=== PATIENT | male | born 1965 | race Caucasian/White ===

== ENCOUNTER 2018-02-18 08:00 | Inpatient (IN) | payer OTHER ==
[2018-03-11] MEDS ORDERED: BUPIVACAINE HCL/PF 0.25% (2.5MG/ML) 10 ML VIAL ONE (07:06)
[2018-03-11] MEDS ORDERED: THROMBIN (BOVINE) 5,000 UNIT VIAL TP ONE ×2 (07:06→09:02)
[2018-03-11] MEDS ORDERED: HEPARIN NA (PORCINE) 5,000 UNITS/ML 1ML VIAL ONE (07:06)
[2018-03-11] MEDS ORDERED: BENZOIN TINCTURE SWABSTICK TP ONE (07:19)
[2018-03-11] MEDS ORDERED: CEFAZOLIN 2 GM in DEXTROSE 5%-WATER - 100 ML IVPB ONE (07:28)
[2018-03-11] MEDS ORDERED: diphenhydrAMINE HCL 25 MG CAPSULE (FP) PO PRN (07:29)
[2018-03-11] MEDS ORDERED: VANCOMYCIN 1,000 MG in DEXTROSE 5%-WATER - 250 ML IVPB ONE (07:29)
[2018-03-11] MEDS ORDERED: ONDANSETRON 4 MG/2 ML VIAL IVPUSH PRN ×2 (07:29→11:24)
[2018-03-11] MEDS ORDERED: LACTATED RINGERS SOLUTION 1,000 ML/1,000 ML INFUS.BAG IV SCH (07:30)
[2018-03-11] MEDS ORDERED: ROCURONIUM BROMIDE 50 MG/5 ML VIAL ONE (08:01)
[2018-03-11] MEDS ORDERED: MIDAZOLAM HCL 2 MG/2 ML SINGLE DOSE VIAL ONE (08:01)
[2018-03-11] MEDS ORDERED: PROPOFOL 20 ML ONE ×11 (08:01→11:05)
[2018-03-11] MEDS ORDERED: LIDOCAINE HCL/PF 2% SDV 5ML VIAL ONE (08:03)
[2018-03-11] MEDS ORDERED: morphine SULFATE/Preservative Free 0.5 MG/ML (1cc Syringe) ONE (08:06)
[2018-03-11] MEDS ORDERED: SUCCINYLCHOLINE CHLORIDE 200 MG/10 ML VIAL ONE (08:13)
[2018-03-11] MEDS ORDERED: fentaNYL CITRATE 250 MCG/5 ML VIAL ONE (08:54)
[2018-03-11] MEDS ORDERED: VANCOMYCIN 1,000 MG VIAL (RESTRICTED TO ID ONLY) ONE (08:57)
[2018-03-11] MEDS ORDERED: ceFAZolin SODIUM 1 GM VIAL ONE ×2 (08:57→11:48)
[2018-03-11] MEDS ORDERED: ceFAZolin 2 GRAM PREMIX BAG IVPB ONE (08:59)
[2018-03-11] MEDS ORDERED: TRANEXAMIC ACID 1000 MG/10 ML VIAL ONE (09:00)
[2018-03-11] MEDS ORDERED: VANCOMYCIN 1 GRAM (PRE-DOCKED) 1,000 MG/250 ML BAG IVPB ONE (09:00)
[2018-03-11] MEDS ORDERED: BUPIVACAINE LIPOSOME/PF (EXPAREL) 266 MG/20 ML VIAL NR ONE ×2 (09:02→11:54)
[2018-03-11] MEDS ORDERED: DEXAMETHASONE SOD PHOSPHATE 4 MG/1 ML VIAL ONE (09:17)
[2018-03-11] MEDS ORDERED: NEOSTIGMINE METHYLSULFATE 0.5 MG/1 ML - 10 ML MDV ONE (09:48)
[2018-03-11] MEDS ORDERED: GLYCOPYRROLATE 0.2 MG/1 ML VIAL ONE (09:48)
[2018-03-11] MEDS ORDERED: PROMETHAZINE HCL 25 MG/1 ML VIAL IVPB PRN (11:24)
[2018-03-11] MEDS ORDERED: DEXAMETHASONE SOD PHOSPHATE 4 MG/1 ML VIAL IVPUSH PRN (11:24)
[2018-03-11] MEDS ORDERED: ceFAZolin SODIUM 1 GM VIAL IVPB ONE (11:55)
[2018-03-11] MEDS ORDERED: BUPIVACAINE HCL/PF 0.25% (2.5MG/ML) 10 ML VIAL IJ ONE (11:55)
[2018-03-11] MEDS ORDERED: METOPROLOL TARTRATE 5 MG/5 ML VIAL ONE (12:01)
[2018-03-11] MEDS ORDERED: HYDROmorphone *PCA* 10MG/50ML DISP.SYRIN PCA ONE (12:59)
[2018-03-11] MEDS: HYDROmorphone *PCA* 10MG/50ML DISP.SYRIN PCA SCH (13:05)
[2018-03-11] MEDS: LACTATED RINGERS SOLUTION 1,000 ML IV SCH (13:34)
--- NOTE | 2018-03-11 13:40 | CONSULT ---
Consultation: REQUESTING PROVIDER: CONSULT REQUEST: We have been asked to medically evaluate this patient for s/p L3-S1 post-lumbar interbody fusion for ICU admission. HISTORY OF PRESENT ILLNESS: 52M w/ pmhx of acid reflux admitted for elective lumbar surgery s/p L3-S1 post- lumbar interbody fusion, POD #0. Pt states he started having back problems since 2001 and has had one other back surgery prior to this surgery. He states he has been taking Percocet at home for his lower lumbar back pain for the past 5 years. Since then he has had to use a cane to ambulate due to severe pain in his RLE. PMHx: Spinal stenosis PSHx: Lumbar back sx FHx: Maternal aunt, grandfather- stomach cancer; Mother, maternal grandmother- heart disease Social: Former smoker, quit 2 months ago, used to smoke 10 cig/day; social drinker, admits to marijuana use REVIEW OF SYSTEMS: CONSTITUTIONAL: Denies f/c, n/v, loss of appetite, visual changes CARDIOVASCULAR: Denies chest pain, palpitations, irregular heart rate, lightheadedness, peripheral edema RESPIRATORY: Denies cough, sob, dyspnea on exertion, orthopnea GASTROINTESTINAL: Denies abd pain, abd distension, n/v, diarrhea, constipation GENITOURINARY: Denies dysuria, frequency, urgency, hesitancy, hematuria MUSCULOSKELETAL: Admits to back pain and weakness in LE, R > L SKIN: Denies rash, itching, pallor NEUROLOGIC: Denies headaches, dizziness, bladder or bowel incontinence PHYSICAL EXAMINATION Vital Signs - 24 hr 03/11/18 03/11/18 03/11/18 06:52 06:53 12:50 Temperature 99.1 F 98.4 F Pulse Rate 78 72 Respiratory 16 18 Rate Blood Pressure 127/73 135/97 O2 Sat by Pulse 98 100 Oximetry (%) 03/11/18 03/11/18 03/11/18 13:05 13:10 13:20 Temperature Pulse Rate 60 60 70 Respiratory 12 12 14 Rate Blood Pressure 133/90 133/90 125/87 O2 Sat by Pulse 100 100 Oximetry (%) 03/11/18 13:35 Temperature Pulse Rate 70 Respiratory 14 Rate Blood Pressure 135/91 O2 Sat by Pulse 100 Oximetry (%) GENERAL: Awake, alert, and fully oriented, in no acute distress. HEAD: Normal with no signs of trauma. EYES: Pupils equal, round and reactive to light, extraocular movements intact, sclera anicteric, conjunctiva clear. No lid lag. EARS, NOSE, THROAT: Ears normal, nares patent, oropharynx clear without exudates. Moist mucous membranes. NECK: Normal range of motion, supple without lymphadenopathy, JVD, or masses. LUNGS: Breath sounds equal, clear to auscultation bilaterally. No wheezes, and no crackles. No accessory muscle use. HEART: Regular rate and rhythm, normal S1 and S2 without murmur, rub or gallop. ABDOMEN: Soft, nontender, not distended, normoactive bowel sounds, no guarding, no rebound, no masses. No hepatomegaly or splenomegaly. MUSCULOSKELETAL: Normal range of motion at all joints. No bony deformities or tenderness. No CVA tenderness. UPPER EXTREMITIES: 2+ pulses, warm, well-perfused. No cyanosis. No clubbing. Cap refill <2 seconds. No peripheral edema. LOWER EXTREMITIES: 2+ pulses, warm, well-perfused. No calf tenderness. No peripheral edema. NEUROLOGICAL: Cranial nerves II-XII intact. Normal speech. Normal gait. PSYCHIATRIC: Cooperative. Good eye contact. Appropriate mood and affect. SKIN: Warm, dry, normal turgor, no rashes or lesions noted. Laboratory Results - last 24 hr 03/11/18 03/11/18 06:23 06:52 Blood Type A NEGATIVE A NEGATIVE Antibody Screen Negative Active Medications Generic Name Dose Route Start Last Admin Trade Name Freq PRN Reason Stop Dose Admin Baclofen 10 mg 03/12/18 10:00 Lioresal - PO BID [facility] Dexamethasone Sodium Phosphate 4 mg 03/11/18 11:24 Decadron Injection - IVPUSH ONCE PRN NAUSEA AND/OR VOMITING Diphenhydramine HCl 25 mg 03/11/18 07:29 Benadryl - PO Q6H PRN FOR ITCHING Diphenhydramine HCl 12.5 mg 03/11/18 11:24 Benadryl Injection - IVPUSH ONCE PRN FOR ITCHING Docusate Sodium 100 mg 03/11/18 14:00 Colace - PO TID RAMA Fentanyl 50 mcg 03/11/18 11:24 Sublimaze Injection - IVPUSH [id number] PRN PAIN-PACU ORDER X 4 DOSES ONLY Folic Acid 1 mg 03/11/18 10:00 Folic Acid - PO DAILY RAMA Hydromorphone HCl 10 mg 03/11/18 11:30 03/11/18 13:05 Dilaudid [employer] - VULCAN CREWMEMBER 03/18/18 11:26 10 mg VULCAN CREWMEMBER RAMA Administration Protocol Lactated Ringer's 1,000 mls @ 125 mls/hr 03/11/18 11:30 03/11/18 13:34 Lactated Ringers Solution IV 125 mls/hr ASDIR RAMA Administration Ondansetron HCl 4 mg 03/11/18 07:29 Zofran Injection IVPUSH Q6H PRN NAUSEA Ondansetron HCl 4 mg 03/11/18 11:24 Zofran Injection IVPUSH Q4H PRN NAUSEA AND/OR VOMITING Promethazine HCl 12.5 mg 03/11/18 11:24 Phenergan Injection - IVPB Q6H PRN NAUSEA AND/OR VOMITING Varenicline 1 mg 03/12/18 10:00 Chantix - PO BID RAMA ASSESSMENT/PLAN: 52M w/ pmhx of 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 -no NSAIDs -Fentanyl, Dilaudid for pain -Baclofen -PT/OT, OOB. Rehab -WBAT B/L LE ID -post-op Ancef x2 doses Pulm -IS FEN -no IVF needed -recheck lytes in AM -CLD Prophylaxis DVT- SCDs, TEDs dispo -full code Visit type - Emergency Visit Emergency Visit: Yes ED Registration Date: 03/11/18 Care time: The patient presented to the Emergency Department on the above date and was hospitalized for further evaluation of their emergent condition. - New Patient This patient is new to me today: Yes Date on this admission: 03/11/18 - Critical Care Critical Care patient: Yes Total Critical Care Time (in minutes): 36 Critical Care Statement: The care of this patient involved high complexity decision making to prevent further life threatening deterioration of the patient 's condition and/or to evaluate & treat vital organ system(s) failure or risk of failure.
--- NOTE | 2018-03-11 13:58 | PN ---
Progress Note (short form) - Note Progress Note: 52M POD #0 s/p: 1. Removal of hardware (lumbar spine) 2. Inspection of fusion mass (lumbar spine) 3. Revision laminectomy L4 4. L3 laminectomies 5. L3, L4 osteotomies (facetectomies) 6. L3-L4 Otero Becerra Osteotomies 7. L3-S1 posterior instrumentation 5. L3-S1 posterolateral arthrodesis 7. L3-L4 posterior lumbar interbody fusion 8. L3-L4 mechanical device 9. Bone allograft 10. Bone autograft 11. Bone marrow aspiration 12. Complex wound closure -Pain control: NO NSAID's. -DVT PPx: -Mechanical only: SUNITA's, SCD's. -Chemical: None. -Incentive spirometry. -PT/OT/Rehab, OOB. -WBAT B/L LE. -NPO until flatus. -Monitor drain output. -Amador care; d/c when ambulating. -Post-op Ancef x 2 doses. -No bending, lifting, or twisting for 9-12 months. -Care per ICU & medical hospitalist teams. -Will follow. Jarad Souza MD (Orthopaedic Surgery).
--- NOTE | 2018-03-11 14:01 | OP ---
Operative Note - Note: Operative Date: 03/11/18 Pre-Operative Diagnosis: 1. 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 2. Severe multi-level lumbar spinal stenosis with neurogenic claudication. 3. Lumbosacral instability. 4. Sagittal vertical malalignment/imbalance (kyphosis). 5. Neurological decline/ weakness. Operation: 1. Removal of hardware (lumbar spine). 2. Inspection of fusion mass (lumbar spine). 3. Revision laminectomy L4. 4. L3 laminectomies. 5. L3, L4 osteotomies (facetectomies). 6. L3-L4 Otero Becerra Osteotomies. 7. L3-S1 posterior instrumentation. 8. L3-S1 posterolateral arthrodesis. 9. L3-L4 posterior lumbar interbody fusion. 10. L3-L4 mechanical device. 11. Bone allograft. 12. Bone autograft. 13. Bone marrow aspiration. 14. Complex wound closure Post-Operative Diagnosis: Same as Pre-op Surgeon: Jarad Souza Commander [employer]: Earnest Hernandez Anesthesiologist/ACCOUNTING ANALYST: Enzo Gonzalez Anesthesia: General Specimens Removed: L3-L4 disc Estimated Blood Loss (mls): 325 Drains & Tubes with Location: 1 x superficial HemoVac Fluid Volume Replaced (mls): 1,700 (Crystalloid) Operative Report Dictated: Yes
--- NOTE | 2018-03-11 14:16 | SURG ---
Surgery Brick Veneer Maker Note Brick Veneer Maker: Earnest Hernandez PA-C Date of Service: 03/11/18 Diagnosis: 1. 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 2. Severe multi-level lumbar spinal stenosis with neurogenic claudication. 3. Lumbosacral instability. 4. Sagittal vertical malalignment/imbalance (kyphosis). 5. Neurological decline/weakness. Procedure: 1. Removal of hardware (lumbar spine). 2. Inspection of fusion mass (lumbar spine). 3. Revision laminectomy L4. 4. L3 laminectomies. 5. L3, L4 osteotomies (facetectomies). 6. L3-L4 Otero Becerra Osteotomies. 7. L3-S1 posterior instrumentation. 8. L3-S1 posterolateral arthrodesis. 9. L3-L4 posterior lumbar interbody fusion. 10. L3-L4 mechanical device. 11. Bone allograft. 12. Bone autograft. 13. Bone marrow aspiration. 14. Complex wound closure I was present for the entirety of the operative procedure. For further detail, please refer to operative report. Visit type - Case Type Case Type: Scheduled - New patient This patient is new to me today: Yes Date on this admission: 03/11/18
[2018-03-11] MEDS: FOLIC ACID 1 MG TABLET (FP) PO SCH (15:52)
[2018-03-11] MEDS: DOCUSATE SODIUM 100 MG CAPSULE (FP) PO SCH ×2 (15:53→21:15)
[2018-03-11] MEDS ORDERED: CEFAZOLIN 2 GM/D5W 2 GM/50 ML ML IVPB SCH (16:00)
--- NOTE | 2018-03-11 21:33 | OP ---
DATE OF OPERATION: 03/11/2018 SURGEON: Jarad Souza MD NEURO UROLOGIST: YARON Rangel PREOPERATIVE DIAGNOSIS: 1. 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 2. Severe multi-level lumbar spinal stenosis with neurogenic claudication. 3. Lumbar spine segmental instability. 4. Sagittal vertical malalignment/imbalance (kyphosis). 5. Neurological decline/weakness. POSTOPERATIVE DIAGNOSIS: 1. 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 2. Severe multi-level lumbar spinal stenosis with neurogenic claudication. 3. Lumbar spine segmental instability. 4. Sagittal vertical malalignment/imbalance (kyphosis). 5. Neurological decline/weakness. OPERATION PERFORMED: 1. Removal of hardware (lumbar spine). 2. Inspection of fusion mass (lumbar spine). 3. Revision laminectomy L4. 4. L3 laminectomies. 5. L3, L4 osteotomies (facetectomies). 6. L3-L4 Otero Becerra Osteotomies. 7. L3-S1 posterior instrumentation. 8. L3-S1 posterolateral arthrodesis. 9. L3-L4 posterior lumbar interbody fusion. 10. L3-L4 mechanical device. 11. Bone allograft. 12. Bone autograft. 13. Bone marrow aspiration. 14. Complex wound closure. 15. Biplanar fluoroscopy. 16. Intra-operative neural monitoring. ANESTHESIA: General. ANTIBIOTICS GIVEN: Kefzol 2 g, vancomycin 1 g preoperative, Kefzol 1 g given at the end of the procedure. OPERATION DETAILS: Patient correctly identified, brought to the operating room. Lumbar spine was prepped, routine draped with window draping. We used Betadine scrub solution, wiped off with alcohol, DuraPrep applied. Midline incision utilized. Dissection was taken through to the spinous process of L1, down to the tip of the spinous process of S1. Subperiosteal dissection started off in the proximal area where the subperiosteal levels were stripped off the bony margins and then dissecting out laterally. The hardware was not readily noted. Using the Myandb removal equipment, the L4, L5, S1 screws were removed with no difficulty. Once the screws had been removed, placing instrumentation onto the spine to clamp the spine appropriately, the fusion mass was inspected carefully and found to be completely stable and solid at L4, L5, S1. This fitted with the CT scan which showed bony growth accordingly. At that point, once all screws had been removed, the lamina of L3 was identified. We used a curette to define the inferior margin of the lamina. A [place] instrument was placed deep to the sublaminar space to separate the tissues off the bone bed, and the entire lamina was resected centrally. Once this had been performed, using osteotomes, the pars interarticularis and the inferior facet were incised. This was imploded into the vertebral canal medially to thus gain easy access to the superior facet at this level. This was readily resected, cutting out all the superior facet at the L3-4 joint which caused marked stenosis noted. The entire theca was freed after complete removal of the bone of L4 as well as the L3 level. Superior undercutting facetectomy performed. No injury to the dura. The dura was adherent, stuck down but freed using a [place] as well as a [place] 4. The dura was gently teased off the disk at L3-4. Epidural veins were dealt with with bipolar Bovie. An annulotomy was performed at L3-4. The bree were inserted. Disk material was removed completely. The serrated curettes helped clear all the soft tissue off the endplate bone. Once the entire disk had been emptied with the use of sequential shaving up to a size 10, the interbody space was packed with bone graft. The bone graft then enabled the seating of the cage L3-4, which resulted in, as per x-ray, a beautiful opening of the disk space and the foramen. Once this had been performed, no complications with the insertion and completing, thus the posterior lumbar interbody fusion including bone grafting and cage insertion. The pedicles of L3, L4, L5, S1 were entered using anatomic guidelines. Lateral fluoroscopic x-rays helped direct the screws appropriately, and new screws were placed at L3, L4, L5, S1. These were 6.5 x 40 mm screws. Each screw tested with neuromonitoring and found to be completely stable and safe. Prior to the insertion of each screw, the pedicles were palpated with a ball-tip feeler and found to be well seated. The rods were applied to the screw heads, fixed at the appropriate caps , tightened appropriately with a torque device. No crosslinks utilized. The wound was thoroughly lavaged. A bone graft, which was a mixture of autologous bone and expanded with allograft bone, and this then mixed with bone marrow aspirate concentrate, packed into the intertransverse plane from L3 to S1. Following this, the muscle was carefully trimmed, to debride it of any fragmented muscle, and the actual wound was closed as follows: Muscle 1 Vicryl, fascia 1 Vicryl, subcutaneous 1 and 2-0 Vicryl, skin kelly. Drainage: 1/8 inch x1. Operation went extremely well. No complications. In fact, the intraoperative neuromonitoring resulted in an improvement of neural numbers once the decompression had been completed. MD THELMA Fritz/[id number] MTDD
[2018-03-11] MEDS ORDERED: MAGNESIUM HYDROX 2400MG/30ML ORAL SUSPENSION 30 ML CUP PO PRN (23:49)
[2018-03-12] MEDS ORDERED: CEFAZOLIN 2 GM/D5W 2 GM/50 ML ML IVPB SCH
[2018-03-12] MEDS ORDERED: LORazepam 2 MG/ML SDV VIAL IVPUSH ONE (00:29)
[2018-03-12] MEDS ORDERED: LORazepam 2 MG/ML SDV VIAL ONE (00:30)
[2018-03-12] MEDS ORDERED: chlorproMAZINE HCL 25 MG TABLET PO PRN (01:16)
[2018-03-12] MEDS: DOCUSATE SODIUM 100 MG CAPSULE (FP) PO SCH ×3 (05:39→21:59)
[2018-03-12 06:17] LABS: HEMATOCRIT 33.3 % (35.4-49); HEMOGLOBIN 11.2 GM/dL (11.7-16.9); MCHC 33.5 g/dl (32.0-35.9); MEAN CELL VOLUME 98.5 fl (80-96); PLATELET COUNT 218 K/MM3 (134-434); RBC 3.38 M/mm3 (4.00-5.60); RDW 13.4 % (11.9-15.9); WHITE BLOOD COUNT 15.3 K/mm3 (4.0-10.0)
[2018-03-12 07:24] LABS: ANION GAP 10 MMOL/L (8-16); BLOOD UREA NITROGEN 20 mg/dL (7-18); CALCIUM 8.4 mg/dL (8.5-10.1); CHLORIDE 100 mmol/L (98-107); CO2 26 mmol/L (21-32); CREATININE 0.8 mg/dL (0.55-1.3); GLUCOSE,RANDOM 93 mg/dL (74-106); POTASSIUM 3.8 mmol/L (3.5-5.1); SODIUM 136 mmol/L (136-145)
--- NOTE | 2018-03-12 07:32 | PN ---
Physical Exam: SUBJECTIVE: Patient seen and examined. No acute events overnight. Denies shah/d, n /v, f/c, chest pain, sob, numbness/tingling, bowel/urinary incontinence. Pt eager to get out of bed. Tolerating CLD, but has not passed flatus or had a bowel movement yet. OBJECTIVE: Vital Signs Period Temp Pulse Resp BP Sys/Osman Pulse Ox Last 24 Hr 18 F-98.4 F 60-80 11-20 110-139/61-97 98-100 GENERAL: NAD. AAOx3. Resting comfortably. HEAD: Normal with no signs of trauma. EYES: PERRL, extraocular movements intact, sclera anicteric, conjunctiva clear. No ptosis. ENT: Ears normal, nares patent, oropharynx clear without exudates, moist mucous membranes. NECK: Trachea midline, full range of motion, supple. LUNGS: Breath sounds equal, clear to auscultation bilaterally, no wheezes, no crackles, no accessory muscle use. HEART: Regular rate and rhythm, S1, S2 without murmur, rub or gallop. ABDOMEN: Soft, nontender, nondistended, normoactive bowel sounds, no guarding, no rebound, no hepatosplenomegaly, no masses. EXTREMITIES: 2+ pulses, warm, well-perfused, no edema. NEUROLOGICAL: Cranial nerves II through XII grossly intact. Normal speech, gait not observed. PSYCH: Normal mood, normal affect. SKIN: Warm, dry, normal turgor, no rashes or lesions noted Laboratory Results - last 24 hr 03/11/18 03/11/18 03/12/18 06:23 06:52 05:30 WBC 15.3 H RBC 3.38 L Hgb 11.2 L Hct 33.3 L MCV 98.5 H MCH 33.0 MCHC 33.5 RDW 13.4 Plt Count 218 MPV 9.0 Sodium Potassium Chloride Carbon Dioxide Anion Gap BUN Creatinine Creat Clearance w eGFR Random Glucose Calcium Blood Type A NEGATIVE A NEGATIVE Antibody Screen Negative 03/12/18 05:30 WBC RBC Hgb Hct MCV MCH MCHC RDW Plt Count MPV Sodium 136 Potassium 3.8 Chloride 100 Carbon Dioxide 26 Anion Gap 10 BUN 20 H Creatinine 0.8 Creat Clearance w eGFR > 60 Random Glucose 93 Calcium 8.4 L Blood Type Antibody Screen Active Medications Generic Name Dose Route Start Last Admin Trade Name Freq PRN Reason Stop Dose Admin Baclofen 10 mg 03/12/18 10:00 Lioresal - PO BID [facility] Dexamethasone Sodium Phosphate 4 mg 03/11/18 11:24 Decadron Injection - IVPUSH ONCE PRN NAUSEA AND/OR VOMITING Diphenhydramine HCl 25 mg 03/11/18 07:29 Benadryl - PO Q6H PRN FOR ITCHING Diphenhydramine HCl 12.5 mg 03/11/18 11:24 Benadryl Injection - IVPUSH ONCE PRN FOR ITCHING Docusate Sodium 100 mg 03/11/18 14:00 03/12/18 05:39 Colace - PO 100 mg TID RAMA Administration Folic Acid 1 mg 03/11/18 10:00 03/11/18 15:52 Folic Acid - PO Not Given DAILY [facility] Hydromorphone HCl 10 mg 03/11/18 11:30 03/11/18 13:05 Dilaudid Tip Stretcher - APPLIED COMPUTER SCIENCE PROFESSOR 03/18/18 11:26 10 mg APPLIED COMPUTER SCIENCE PROFESSOR RAMA Administration Protocol Lactated Ringer's 1,000 mls @ 125 mls/hr 03/11/18 11:30 03/11/18 13:34 Lactated Ringers Solution IV 125 mls/hr ASDIR RAMA Administration Magnesium Hydroxide 30 ml 03/11/18 23:49 03/12/18 00:08 Milk Of Magnesia - PO 30 ml DAILY PRN Administration CONSTIPATION Ondansetron HCl 4 mg 03/11/18 07:29 Zofran Injection IVPUSH Q6H PRN NAUSEA Ondansetron HCl 4 mg 03/11/18 11:24 Zofran Injection IVPUSH Q4H PRN NAUSEA AND/OR VOMITING Promethazine HCl 12.5 mg 03/11/18 11:24 Phenergan Injection - IVPB Q6H PRN NAUSEA AND/OR VOMITING Varenicline 1 mg 03/12/18 10:00 Chantix - PO BID [facility] ASSESSMENT/PLAN: 52M w/ pmhx of 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 -Pt currently stable, no complaints. -no NSAIDs -Fentanyl, Dilaudid for pain -Baclofen -PT/OT, OOB. Rehab -WBAT B/L LE GI #GERD -Protonix 40 mg PO QD ID -post-op Ancef x2 doses Pulm -IS FEN -no IVF needed -recheck lytes in AM -CLD, adv as tolerated Prophylaxis DVT- SCDs, TEDs dispo -full code -transfer to med-surg Visit type - Emergency Visit Emergency Visit: Yes ED Registration Date: 03/11/18 Care time: The patient presented to the Emergency Department on the above date and was hospitalized for further evaluation of their emergent condition. - New Patient This patient is new to me today: No - Critical Care Critical Care patient: Yes Total Critical Care Time (in minutes): 36 Critical Care Statement: The care of this patient involved high complexity decision making to prevent further life threatening deterioration of the patient 's condition and/or to evaluate & treat vital organ system(s) failure or risk of failure.
--- NOTE | 2018-03-12 07:57 | PN ---
Progress Note (short form) - Note Progress Note: POD #1 Alert. Resting comfortably in bed. C/o of incisional tenderness. Adequate pain control via COMMISSIONING ENGINEER. Hasn't been OOB yet. States feeling much better compared to prior too surgical procedure. Denies n/v/f/c, CP, SOB, YANEZ, palpitations, LE numbness/tingling/weakness. Denies bladder/bowel incontinence. Last Vital Signs Temp Pulse Resp BP Pulse Ox 98.2 F 73 15 125/74 98 03/11/18 17:38 03/12/18 06:00 03/12/18 06:00 03/12/18 06:00 03/11/18 20:46 CBC, BMP 03/12/18 05:30 03/12/18 05:30 DRAIN OUTPUT 03/11/18 03/11/18 03/12/18 14:20 18:15 06:00 Hemeovac 20 50 Barger 200 1,400 Gen: nad Back: dressing c/d/i. drain on suction (serosanguinous) : barger to gravity (clear) LE: SCDs bilat. Soft. NT. Neuro: GMNVI bilat Problem List - Problems (1) Multilevel disc disorder Assessment/Plan: POD #1 1. Removal of hardware (lumbar spine) 2. Inspection of fusion mass (lumbar spine) 3. Revision laminectomy L4 4. L3 laminectomies 5. L3, L4 osteotomies (facetectomies) 6. L3-L4 Otero Becerra Osteotomies 7. L3-S1 posterior instrumentation 5. L3-S1 posterolateral arthrodesis 7. L3-L4 posterior lumbar interbody fusion 8. L3-L4 mechanical device 9. Bone allograft 10. Bone autograft 11. Bone marrow aspiration 12. Complex wound closure -Pain control: NO NSAID's. -DVT PPx: -Mechanical only: SUNITA's, SCD's. -Chemical: None. -Incentive spirometry. -PT/OT/Rehab, OOB. -WBAT B/L LE. -NPO until flatus. -Monitor drain output. -Barger care; d/c when ambulating. -Post-op Ancef x 2 doses. -No bending, lifting, or twisting for 9-12 months. -Care per ICU & medical hospitalist teams. -Will follow. Code(s): [id number] - (2) Multilevel foraminal stenosis Code(s): M48.00 - SPINAL STENOSIS, SITE UNSPECIFIED (3) Radiculopathy with lower extremity symptoms Code(s): M54.10 - RADICULOPATHY, SITE UNSPECIFIED
--- NOTE | 2018-03-12 08:05 | PN ---
Progress Note (short form) - Note Progress Note: Anesthesia/pain Pt seen and examined S:Alert and awake comfortable O: Vital Signs Temperature 98.2 F 03/11/18 17:38 Pulse Rate 73 03/12/18 06:00 Respiratory Rate 15 03/12/18 06:00 Blood Pressure 125/74 03/12/18 06:00 O2 Sat by Pulse Oximetry (%) 98 03/11/18 20:46 CBC, BMP 03/12/18 05:30 03/12/18 05:30 A/P: Current Active Problems Multilevel disc disorder (Acute) Multilevel foraminal stenosis (Acute) Radiculopathy with lower extremity symptoms (Acute) S/P L3-S1 Decompression with fusion Doing well post op uses GSA COORDINATOR Continue current care Kam Villanueva MD
[2018-03-12] MEDS: LACTATED RINGERS SOLUTION 1,000 ML IV SCH ×2 (08:25→21:54)
[2018-03-12 08:31] LABS: MAGNESIUM 1.9 mg/dL (1.8-2.4); PHOSPHOROUS 3.4 mg/dL (2.5-4.9)
--- NOTE | 2018-03-12 09:07 | PN ---
Progress Note (short form) - Note Progress Note: Post op day#1.S/P L3-S1 Decompression with fusion and cage placement and L4-L5 removal of hardware with revision under GA uneventful Patient had intrathical duraomrph and TLIP block by the surgeon and is on Dilaudid RN SHIFT MGR for pain.P78, BP135/74 and Spo2 97% on O2 2l.Patient stable and c/o pain score of 4-5/10.Will continue RN SHIFT MGR today and will f/u tomorrow.
--- NOTE | 2018-03-12 10:09 | PN ---
Physical Exam: SUBJECTIVE: Patient seen and examined at bedside. POD #1 s/p lumbar spine decompression and fusion. Tolerating liquid diet. Pain well controlled. Making good urine. Has not passed flatus. Eager to get out of bed today. Denies CP,CORTEZ, SOB, abdominal pain, nausea or vomiting. OBJECTIVE: Vital Signs Period Temp Pulse Resp BP Sys/Osman Pulse Ox Last 24 Hr 18 F-98.4 F 60-80 11-20 110-139/61-97 98-100 GENERAL:AAOx3, NAD HEAD: NCAT EYES: PERRL, EOMI, sclera anicteric, conjunctiva clear. No ptosis. ENT: moist mucous membranes. NECK: supple, No JVD LUNGS: CTAB, no wheezes, no crackles, no accessory muscle use. HEART:RRR, S1, S2 without murmur, rub or gallop. ABDOMEN: Soft, NTND, NABS, no guarding, no rebound, no hepatosplenomegaly, no masses. EXTREMITIES: 2+ pulses, warm, well-perfused, no edema. NEUROLOGICAL: Cranial nerves II through XII grossly intact. 4/5 strength bilat. LE. Neurovascularly intact. Normal speech, gait not observed. PSYCH: Normal mood, normal affect. SKIN: surgical wound dressing appears C/D/I Laboratory Results - last 24 hr 03/11/18 03/11/18 03/12/18 06:23 06:52 05:30 WBC 15.3 H RBC 3.38 L Hgb 11.2 L Hct 33.3 L MCV 98.5 H MCH 33.0 MCHC 33.5 RDW 13.4 Plt Count 218 MPV 9.0 Sodium Potassium Chloride Carbon Dioxide Anion Gap BUN Creatinine Creat Clearance w eGFR Random Glucose Calcium Phosphorus Magnesium Blood Type A NEGATIVE A NEGATIVE Antibody Screen Negative 03/12/18 05:30 WBC RBC Hgb Hct MCV MCH MCHC RDW Plt Count MPV Sodium 136 Potassium 3.8 Chloride 100 Carbon Dioxide 26 Anion Gap 10 BUN 20 H Creatinine 0.8 Creat Clearance w eGFR > 60 Random Glucose 93 Calcium 8.4 L Phosphorus 3.4 Magnesium 1.9 Blood Type Antibody Screen Active Medications Generic Name Dose Route Start Last Admin Trade Name Freq PRN Reason Stop Dose Admin Baclofen 10 mg 03/12/18 10:00 Lioresal - PO BID RAMA Dexamethasone Sodium Phosphate 4 mg 03/11/18 11:24 Decadron Injection - IVPUSH ONCE PRN NAUSEA AND/OR VOMITING Diphenhydramine HCl 25 mg 03/11/18 07:29 Benadryl - PO Q6H PRN FOR ITCHING Diphenhydramine HCl 12.5 mg 03/11/18 11:24 Benadryl Injection - IVPUSH ONCE PRN FOR ITCHING Docusate Sodium 100 mg 03/11/18 14:00 03/12/18 05:39 Colace - PO 100 mg TID RAMA Administration Folic Acid 1 mg 03/11/18 10:00 03/11/18 15:52 Folic Acid - PO Not Given DAILY [facility] Hydromorphone HCl 10 mg 03/11/18 11:30 03/11/18 13:05 Dilaudid [place]yer [place] Slabs - LOG SORTING SUPERVISOR 03/18/18 11:26 10 mg LOG SORTING SUPERVISOR RAMA Administration Protocol Lactated Ringer's 1,000 mls @ 125 mls/hr 03/11/18 11:30 03/12/18 08:25 Lactated Ringers Solution IV 125 mls/hr ASDIR [facility] Administration Magnesium Hydroxide 30 ml 03/11/18 23:49 03/12/18 00:08 Milk Of Magnesia - PO 30 ml DAILY PRN Administration CONSTIPATION Ondansetron HCl 4 mg 03/11/18 07:29 Zofran Injection IVPUSH Q6H PRN NAUSEA Ondansetron HCl 4 mg 03/11/18 11:24 Zofran Injection IVPUSH Q4H PRN NAUSEA AND/OR VOMITING Pantoprazole Sodium 40 mg 03/12/18 10:00 Protonix - PO DAILY [facility] Promethazine HCl 12.5 mg 03/11/18 11:24 Phenergan Injection - IVPB Q6H PRN NAUSEA AND/OR VOMITING Ranitidine HCl 150 mg 03/12/18 10:15 Zantac - PO DAILY [facility] Varenicline 1 mg 03/12/18 10:00 Chantix - PO BID [facility] ASSESSMENT/PLAN: Problem List - Problems (1) S/P lumbar spinal fusion Assessment/Plan: * LOG SORTING SUPERVISOR pain pump * encourage incentive spirometer. * Activity and diet per surgical team. (2) GERD (gastroesophageal reflux disease) Assessment/Plan: * ranitidine 150mg PO daily. (3) DVT prophylaxis Assessment/Plan: Bilateral SCD's Visit type - Emergency Visit Emergency Visit: Yes ED Registration Date: 03/11/18 Care time: The patient presented to the Emergency Department on the above date and was hospitalized for further evaluation of their emergent condition. - New Patient This patient is new to me today: Yes Date on this admission: 03/13/18 - Critical Care Critical Care patient: Yes Total Critical Care Time (in minutes): 33 Critical Care Statement: The care of this patient involved high complexity decision making to prevent further life threatening deterioration of the patient 's condition and/or to evaluate & treat vital organ system(s) failure or risk of failure.
[2018-03-12] MEDS ORDERED: PT OWN MED DRAWER 7, Y5N ONE (10:14)
[2018-03-12] MEDS: PANTOPRAZOLE 40 MG TABLET (FP) PO SCH (10:16)
[2018-03-12] MEDS: VARENICLINE TARTRATE 1 MG TAB PO SCH ×2 (10:16→21:58)
[2018-03-12] MEDS: BACLOFEN 10 MG TABLET (FP) PO SCH ×2 (10:16→22:00)
[2018-03-12] MEDS: FOLIC ACID 1 MG TABLET (FP) PO SCH (10:16)
--- NOTE | 2018-03-12 12:41 | PN ---
Teaching Attending Note Name of Resident: Rahul Nicholas ATTENDING PHYSICIAN STATEMENT I saw and evaluated the patient. I reviewed the resident's note and discussed the case with the resident. I agree with the resident's findings and plan as documented. SUBJECTIVE: Mr Grayson is without complaint. Denies cp, sob, n/v. Resident says patient complained of upset stomach OBJECTIVE: Gen: nad CV: rrr w/o m/r/g Pulm: ctab w/o w/r/r Abd: +bs, s/nt/nd Ext: no c/c/e ASSESSMENT AND PLAN: 1. GERD 2. Laminectomy -start ranitidine -encouraged I/S use -ok to transfer to floor from a medical standpoint -activity and diet per surgical team -continue management per surgical team
[2018-03-12] MEDS: RANITIDINE HCL 150 MG TABLET (FP) PO SCH (13:12)
[2018-03-12] MEDS: HYDROmorphone *PCA* 10MG/50ML DISP.SYRIN PCA SCH (13:18)
--- NOTE | 2018-03-12 15:28 | PN ---
Teaching Attending Note Name of Resident: Maya Hitchcock ATTENDING PHYSICIAN STATEMENT I saw and evaluated the patient. I reviewed the resident's note and discussed the case with the resident. I agree with the resident's findings and plan as documented. SUBJECTIVE: Patient seen and examined in the ICU. No acute events overnight. No CP or SOB. Pain seems adequately controlled. Intake & Output 03/09/18 03/10/18 03/11/18 03/12/18 23:59 23:59 23:59 23:59 Intake Total 2840 2437 Output Total 1045 2330 Balance 1795 107 Weight 182 lb 2 oz Last Vital Signs Temp Pulse Resp BP Pulse Ox 99.4 F 70 14 140/93 99 03/12/18 14:00 03/12/18 14:00 03/12/18 14:00 03/12/18 14:00 03/12/18 09:00 Active Medications Baclofen (Lioresal -) 10 mg PO BID [facility] Last Admin: 03/12/18 10:16 Dose: 10 mg Dexamethasone Sodium Phosphate (Decadron Injection -) 4 mg IVPUSH ONCE PRN PRN Reason: NAUSEA AND/OR VOMITING Diphenhydramine HCl (Benadryl -) 25 mg PO Q6H PRN PRN Reason: FOR ITCHING Diphenhydramine HCl (Benadryl Injection -) 12.5 mg IVPUSH ONCE PRN PRN Reason: FOR ITCHING Docusate Sodium (Colace -) 100 mg PO TID [facility] Last Admin: 03/12/18 13:12 Dose: 100 mg Folic Acid (Folic Acid -) 1 mg PO DAILY [facility] Last Admin: 03/12/18 10:16 Dose: 1 mg Hydromorphone HCl (Dilaudid Prep Cook -) 10 mg HERD TESTER HERD TESTER [facility]; Protocol Stop: 03/18/18 11:26 Last Admin: 03/12/18 13:18 Dose: 10 mg Lactated Ringer's (Lactated Ringers Solution) 1,000 mls @ 125 mls/hr IV ASDIR [facility] Last Admin: 03/12/18 08:25 Dose: 125 mls/hr Magnesium Hydroxide (Milk Of Magnesia -) 30 ml PO DAILY PRN PRN Reason: CONSTIPATION Last Admin: 03/12/18 00:08 Dose: 30 ml Ondansetron HCl (Zofran Injection) 4 mg IVPUSH Q6H PRN PRN Reason: NAUSEA Ondansetron HCl (Zofran Injection) 4 mg IVPUSH Q4H PRN PRN Reason: NAUSEA AND/OR VOMITING Pantoprazole Sodium (Protonix -) 40 mg PO DAILY [facility] Last Admin: 03/12/18 10:16 Dose: 40 mg Promethazine HCl (Phenergan Injection -) 12.5 mg IVPB Q6H PRN PRN Reason: NAUSEA AND/OR VOMITING Ranitidine HCl (Zantac -) 150 mg PO DAILY [facility] Last Admin: 03/12/18 13:12 Dose: 150 mg Varenicline (Chantix -) 1 mg PO BID [facility] Last Admin: 03/12/18 10:16 Dose: 1 mg GENERAL: NAD. AAOx3. HEAD: Normal with no signs of trauma. EYES: PERRL, extraocular movements intact, sclera anicteric, conjunctiva clear. No ptosis. ENT: Ears normal, nares patent, oropharynx clear without exudates, moist mucous membranes. NECK: Trachea midline, full range of motion, supple. LUNGS: Breath sounds equal, clear to auscultation bilaterally, no wheezes, no crackles HEART: Regular rate and rhythm, S1, S2 without murmur, rub or gallop. ABDOMEN: Soft, nontender, nondistended, normoactive bowel sounds, no guarding, no rebound, no hepatosplenomegaly, no masses. EXTREMITIES: 2+ pulses, warm, well-perfused, no edema. NEUROLOGICAL: Non-verbal SKIN: Warm, dry, normal turgor, no rashes or lesions noted Laboratory Results - last 24 hr 03/11/18 03/11/18 03/12/18 06:23 06:52 05:30 WBC 15.3 H RBC 3.38 L Hgb 11.2 L Hct 33.3 L MCV 98.5 H MCH 33.0 MCHC 33.5 RDW 13.4 Plt Count 218 MPV 9.0 Sodium Potassium Chloride Carbon Dioxide Anion Gap BUN Creatinine Creat Clearance w eGFR Random Glucose Calcium Blood Type A NEGATIVE A NEGATIVE Antibody Screen Negative 03/12/18 05:30 WBC RBC Hgb Hct MCV MCH MCHC RDW Plt Count MPV Sodium 136 Potassium 3.8 Chloride 100 Carbon Dioxide 26 Anion Gap 10 BUN 20 H Creatinine 0.8 Creat Clearance w eGFR > 60 Random Glucose 93 Calcium 8.4 L Blood Type Antibody Screen ASSESSMENT/PLAN: POD #1: 1. Removal of hardware (lumbar spine). 2. Inspection of fusion mass ( lumbar spine). 3. Revision laminectomy L4. 4. L3 laminectomies. 5. L3, L4 osteotomies (facetectomies). 6. L3-L4 Otero Becerra Osteotomies. 7. L3-S1 posterior instrumentation. 8. L3-S1 posterolateral arthrodesis. 9. L3-L4 posterior lumbar interbody fusion. 10. L3-L4 mechanical device. 11. Bone allograft. 12. Bone autograft. 13. Bone marrow aspiration. 14. Complex wound closure No NSAIDs Fentanyl / Dilaudid for pain Baclofen PT/OT, OOB. Rehab WBAT B/L LE PPI OOB to chair Floor Dr Reynolds
--- NOTE | 2018-03-12 16:14 | PATH ---
Surgical Pathology Report Patient Name: WALT ANDERSON [facility]. Rec. #: [id number] /Age/Gender: 1965 (Age: 52) / M Account: [id number] Location: [facility] DIRECTOR OF STRATEGIC INITIATIVES Taken: 03/11/2018 Received: 03/11/2018 Reported: 03/12/2018 Physicians: Jarad Souza M.D. Specimen(s) Received DISC L3-S1 Clinical History Spinal stenosis/instability Final Diagnosis INTERVERTEBRAL DISC, L3-S1, PARTIAL EXCISION: PORTIONS OF INTERVERTEBRAL DISC AND SMALL FRAGMENTS OF BONE. Electronically Signed Maykel Restrepo M.D. Gross Description Received in formalin labeled "disc L3-S1," is a 5.0 x 3.6 x 0.6 cm aggregate of herbert-pink fragments of fibrocartilaginous tissue. A metals sales representative portion is submitted in one cassette. /03/11/2018 saudi03/11/2018
--- NOTE | 2018-03-12 17:01 | EKG ---
Test Reason : Blood Pressure : / mmHG Vent. Rate : 075 BPM Atrial Rate : 075 BPM P-R Int : 142 ms QRS Dur : 098 ms QT Int : 400 ms P-R-T Axes : 044 -30 018 degrees QTc Int : 446 ms NORMAL SINUS RHYTHM LEFT AXIS DEVIATION ABNORMAL ECG Confirmed by MD LADAN, TAWNY ([id number]) on 03/12/2018 5:00:32 PM Referred By: Jarad Souza Confirmed By:TAWNY PICKERING MD
[2018-03-13] MEDS: DOCUSATE SODIUM 100 MG CAPSULE (FP) PO SCH ×3 (06:38→22:15)
[2018-03-13] MEDS: HYDROmorphone *PCA* 10MG/50ML DISP.SYRIN PCA SCH (06:39)
--- NOTE | 2018-03-13 07:51 | PN ---
Physical Exam: SUBJECTIVE: Patient seen and examined at bedside. No acute events overnight. Pt has no complaints. Denies headaches/dizziness, f/c, n/v, cp, sob, abd pain, leg swelling. Joaquin CLD, and admits to flatus, but no BM yet. Admits to walking around and out of bed with no problems. OBJECTIVE: Vital Signs Period Temp Pulse Resp BP Sys/Osman Pulse Ox Last 24 Hr 99.4 F-100.7 F 67-89 12-18 117-140/61-96 99-99 GENERAL: NAD. AAOx3. Resting comfortably. HEENT: AT/NC. EOMI. TERRENCE. Moist mucus membranes. NECK: Trachea midline, full range of motion, supple. LUNGS: CTA B/L. No wheezes noted. HEART: RRR. Normal S1, S2. No murmurs noted. ABDOMEN: Soft, nontender, nondistended, normoactive bowel sounds, no guarding, no rebound, no hepatosplenomegaly, no masses. EXTREMITIES: 2+ pulses, warm, well-perfused, no edema. MSK: Surgical dressing c/d/i on lower lumbar area. NEUROLOGICAL: Cranial nerves II through XII grossly intact. Normal speech, gait not observed. Responds to commands. PSYCH: Normal mood, normal affect. SKIN: Warm, dry, normal turgor, no rashes or lesions noted Laboratory Results - last 24 hr 03/12/18 05:30 Sodium 136 Potassium 3.8 Chloride 100 Carbon Dioxide 26 Anion Gap 10 BUN 20 H Creatinine 0.8 Creat Clearance w eGFR > 60 Random Glucose 93 Calcium 8.4 L Phosphorus 3.4 Magnesium 1.9 Active Medications Generic Name Dose Route Start Last Admin Trade Name Freq PRN Reason Stop Dose Admin Baclofen 10 mg 03/12/18 10:00 03/12/18 22:00 Lioresal - PO 10 mg BID RAMA Administration Dexamethasone Sodium Phosphate 4 mg 03/11/18 11:24 Decadron Injection - IVPUSH ONCE PRN NAUSEA AND/OR VOMITING Diphenhydramine HCl 25 mg 03/11/18 07:29 Benadryl - PO Q6H PRN FOR ITCHING Diphenhydramine HCl 12.5 mg 03/11/18 11:24 Benadryl Injection - IVPUSH ONCE PRN FOR ITCHING Docusate Sodium 100 mg 03/11/18 14:00 03/13/18 06:38 Colace - PO 100 mg TID RAMA Administration Folic Acid 1 mg 03/11/18 10:00 03/12/18 10:16 Folic Acid - PO 1 mg DAILY RAMA Administration Hydromorphone HCl 10 mg 03/11/18 11:30 03/13/18 06:39 Dilaudid Millroom Supervisor - PROCESS CONTROLLER 03/18/18 11:26 10 mg PROCESS CONTROLLER RAMA Administration Protocol Magnesium Hydroxide 30 ml 03/11/18 23:49 03/12/18 00:08 Milk Of Magnesia - PO 30 ml DAILY PRN Administration CONSTIPATION Ondansetron HCl 4 mg 03/11/18 07:29 Zofran Injection IVPUSH Q6H PRN NAUSEA Ondansetron HCl 4 mg 03/11/18 11:24 Zofran Injection IVPUSH Q4H PRN NAUSEA AND/OR VOMITING Pantoprazole Sodium 40 mg 03/12/18 10:00 03/12/18 10:16 Protonix - PO 40 mg DAILY RAMA Administration Promethazine HCl 12.5 mg 03/11/18 11:24 Phenergan Injection - IVPB Q6H PRN NAUSEA AND/OR VOMITING Ranitidine HCl 150 mg 03/12/18 10:15 03/12/18 13:12 Zantac - PO 150 mg DAILY RAMA Administration Varenicline 1 mg 03/12/18 10:00 03/12/18 21:58 Chantix - PO 1 mg BID RAMA Administration ASSESSMENT/PLAN: 52M w/ pmhx of 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 -Pt currently stable, no complaints. -no NSAIDs -Oxycodone for pain -Zofran for nausea -PT/OT, OOB. Rehab -WBAT B/L LE GI #GERD -Protonix 40 mg PO QD Pulm -IS FEN -no IVF needed -recheck lytes in AM -Regular diet, per surg Prophylaxis DVT- SCDs, TEDs, early ambulation dispo -full code -transfer to med-surg Visit type - Emergency Visit Emergency Visit: Yes ED Registration Date: 03/11/18 Care time: The patient presented to the Emergency Department on the above date and was hospitalized for further evaluation of their emergent condition. - New Patient This patient is new to me today: No - Critical Care Critical Care patient: Yes Total Critical Care Time (in minutes): 36 Critical Care Statement: The care of this patient involved high complexity decision making to prevent further life threatening deterioration of the patient 's condition and/or to evaluate & treat vital organ system(s) failure or risk of failure.
[2018-03-13 08:46] LABS: BASO % 0.2 % (0-2.0); EOS % 0.4 % (0-4.5); HEMATOCRIT 34.3 % (35.4-49); HEMOGLOBIN 12.1 GM/dL (11.7-16.9); LYMPH % 10.4 % (8-40); MCH 34.3 pg (25.7-33.7); MCHC 35.4 g/dl (32.0-35.9); MEAN CELL VOLUME 96.9 fl (80-96); MEAN PLT VOLUME 9.4 fl (7.5-11.1); MONO % 11.1 % (3.8-10.2); NEUT % 77.9 % (42.8-82.8); PLATELET COUNT 234 K/MM3 (134-434); RBC 3.54 M/mm3 (4.00-5.60); RDW 13.5 % (11.9-15.9); WHITE BLOOD COUNT 15.4 K/mm3 (4.0-10.0)
[2018-03-13 09:11] LABS: ALBUMIN 3.8 g/dl (3.4-5.0); ALK PHOS 92 U/L (45-117); ANION GAP 6 MMOL/L (8-16); BILIRUBIN,TOTAL 1.1 mg/dL (0.2-1); BLOOD UREA NITROGEN 15 mg/dL (7-18); CHLORIDE 98 mmol/L (98-107); CO2 28 mmol/L (21-32); CREATININE 0.9 mg/dL (0.55-1.3); GLUCOSE,RANDOM 107 mg/dL (74-106); MAGNESIUM 1.9 mg/dL (1.8-2.4); POTASSIUM 4.1 mmol/L (3.5-5.1); SGOT/AST 25 U/L (15-37); SGPT/ALT 26 U/L (13-61); SODIUM 132 mmol/L (136-145); TOT PROT 7.1 g/dl (6.4-8.2)
--- NOTE | 2018-03-13 09:39 | PN ---
Progress Note (short form) - Note Progress Note: POD#2 Pt oob and ambulated x2 yesterday around the ICU unit. Voiding on his own. No nausea/emesis. No flatus or BM. Vital Signs Period Temp Pulse Resp BP Sys/Osman Pulse Ox Last 24 Hr 99.4 F-100.7 F 67-89 14-18 117-140/61-96 99 Hemovac: 180ml yesterday afternoon. Not recorded overnight. 55ml outpt today. GEN: A&0x3, NAD ABD: soft, non-distended, non-tender LE: no calf tenderness or swelling noted b/l. SUNITA/SCDs in place. 5/5 dorsi/ plantar b/l. Back: dressing c/d/i with tegaderm/gauze dressing. CBC, BMP 12/05/18 08:05 12/05/18 08:05 A/p: 52 yo male s/p L3-S1 posterior lumbar fusion, POD#2 Continue clears as tolerated OOB and ambulate with PT IV CLIENT ARCHITECT for pain DVT ppx with SUNITA/SCD/ambulate Awaiting transfer to the floor Spoke with Dr. Souza and diet advanced today. CLIENT ARCHITECT discontinued and added oral oxycodone for pain.
[2018-03-13] MEDS ORDERED: PT OWN MED DRAWER 7, Y5N ONE ×3 (10:35→22:32)
[2018-03-13] MEDS: VARENICLINE TARTRATE 1 MG TAB PO SCH ×2 (10:42→23:01)
[2018-03-13] MEDS: FOLIC ACID 1 MG TABLET (FP) PO SCH (10:43)
[2018-03-13] MEDS: RANITIDINE HCL 150 MG TABLET (FP) PO SCH (10:43)
[2018-03-13] MEDS: BACLOFEN 10 MG TABLET (FP) PO SCH ×2 (10:43→22:15)
[2018-03-13] MEDS: PANTOPRAZOLE 40 MG TABLET (FP) PO SCH (10:43)
--- NOTE | 2018-03-13 10:56 | PN ---
Progress Note (short form) - Note Progress Note: Anesthesia POD#1 S/P L3-S1 Decompression and Fusion under GA and Dilaudid DENTAL HYGIENIST MOBILE COORDINATOR VSS,OOB to chair,no pain complaints. no N/V. A/P Discontinue the DENTAL HYGIENIST MOBILE COORDINATOR. Patient can take oral pain meds by mouth. Sandra Javier MD.
[2018-03-13] MEDS ORDERED: oxyCODONE HCL 5 MG TABLET PO PRN (11:24)
[2018-03-13 13:02] VITALS: BMI 26.1
--- NOTE | 2018-03-13 13:53 | PN ---
Teaching Attending Note Name of Resident: Maya Hitchcock ATTENDING PHYSICIAN STATEMENT I saw and evaluated the patient. I reviewed the resident's note and discussed the case with the resident. I agree with the resident's findings and plan as documented. SUBJECTIVE: Pt seen and examined in the ICU. Pain controlled. No nausea. Small flatus earlier. No fevers or chills. OBJECTIVE: Vital Signs Period Temp Pulse Resp BP Sys/Osman Pulse Ox Last 24 Hr 98.6 F-100.7 F 67-89 14-18 117-141/61-96 99-99 Intake & Output 03/10/18 03/11/18 03/12/18 03/13/18 23:59 23:59 23:59 23:59 Intake Total 2840 3446 380 Output Total 1045 2805 Balance 1795 641 380 Weight 82.611 kg 82.554 kg Gen: NAD at rest Heart: RRR Lung: decreased breath sounds at the bases Abd: soft, nontender Ext: no edema CBC, BMP 03/13/18 08:05 03/13/18 08:05 Active Medications Baclofen (Lioresal -) 10 mg PO BID [facility] Last Admin: 03/13/18 10:43 Dose: 10 mg Dexamethasone Sodium Phosphate (Decadron Injection -) 4 mg IVPUSH ONCE PRN PRN Reason: NAUSEA AND/OR VOMITING Diphenhydramine HCl (Benadryl -) 25 mg PO Q6H PRN PRN Reason: FOR ITCHING Diphenhydramine HCl (Benadryl Injection -) 12.5 mg IVPUSH ONCE PRN PRN Reason: FOR ITCHING Docusate Sodium (Colace -) 100 mg PO TID [facility] Last Admin: 03/13/18 06:38 Dose: 100 mg Folic Acid (Folic Acid -) 1 mg PO DAILY [facility] Last Admin: 03/13/18 10:43 Dose: 1 mg Magnesium Hydroxide (Milk Of Magnesia -) 30 ml PO DAILY PRN PRN Reason: CONSTIPATION Last Admin: 03/12/18 00:08 Dose: 30 ml Ondansetron HCl (Zofran Injection) 4 mg IVPUSH Q6H PRN PRN Reason: NAUSEA Ondansetron HCl (Zofran Injection) 4 mg IVPUSH Q4H PRN PRN Reason: NAUSEA AND/OR VOMITING Oxycodone HCl (Roxicodone -) 5 mg PO Q4H PRN PRN Reason: PAIN LEVEL 1-5 Oxycodone HCl (Roxicodone -) 10 mg PO Q4H PRN PRN Reason: PAIN LEVEL 6-10 Pantoprazole Sodium (Protonix -) 40 mg PO DAILY [facility] Last Admin: 03/13/18 10:43 Dose: 40 mg Promethazine HCl (Phenergan Injection -) 12.5 mg IVPB Q6H PRN PRN Reason: NAUSEA AND/OR VOMITING Ranitidine HCl (Zantac -) 150 mg PO DAILY [facility] Last Admin: 03/13/18 10:43 Dose: 150 mg Varenicline (Chantix -) 1 mg PO BID [facility] Last Admin: 03/13/18 10:42 Dose: 1 mg ASSESSMENT AND PLAN: Lumbar Spinal Stenosis with Neurogenic Claudication s/p CATARINO/revision laminectomy L4/L3-S1 Posterolateral Arthrodesis/L3-L4 Fusion GERD - pain control - incentive spirometry - bowel regimen - monitor drain output - rehab/PT - advance diet as tolerated - DVT prophylaxis - can monitor on floor
--- NOTE | 2018-03-13 16:14 | PN ---
Physical Exam: SUBJECTIVE: Patient seen and examined at bedside. POD #2 s/p lumbar spine decompression and fusion.Passing Flatus. Tolerating advanced diet. Pain well controlled. Making good urine. Has been walking in ICU. Denies CP,CORTEZ, SOB, abdominal pain, nausea or vomiting. OBJECTIVE: Vital Signs Period Temp Pulse Resp BP Sys/Osman Pulse Ox Last 24 Hr 98.6 F-100.7 F 67-89 17-18 117-141/61-96 99-99 GENERAL:AAOx3, NAD HEAD: NCAT EYES: PERRL, EOMI, sclera anicteric, conjunctiva clear. No ptosis. ENT: moist mucous membranes. NECK: supple, No JVD LUNGS: CTAB, no wheezes, no crackles, no accessory muscle use. HEART:RRR, S1, S2 without murmur, rub or gallop. ABDOMEN: Soft, NTND, NABS, no guarding, no rebound, no hepatosplenomegaly, no masses. EXTREMITIES: 2+ pulses, warm, well-perfused, no edema. NEUROLOGICAL: Cranial nerves II through XII grossly intact. 4/5 strength bilat. LE. Neurovascularly intact. Normal speech, gait not observed. PSYCH: Normal mood, normal affect. SKIN: surgical wound dressing appears C/D/I Laboratory Results - last 24 hr 03/13/18 03/13/18 08:05 08:05 WBC 15.4 H RBC 3.54 L Hgb 12.1 Hct 34.3 L MCV 96.9 H MCH 34.3 H MCHC 35.4 RDW 13.5 Plt Count 234 MPV 9.4 Absolute Neuts (auto) 12.0 H Neutrophils % 77.9 Lymphocytes % 10.4 Monocytes % 11.1 H Eosinophils % 0.4 Basophils % 0.2 Nucleated RBC % 0 Sodium 132 L Potassium 4.1 Chloride 98 Carbon Dioxide 28 Anion Gap 6 L BUN 15 Creatinine 0.9 Creat Clearance w eGFR > 60 Random Glucose 107 H Calcium 9.0 Phosphorus 3.0 Magnesium 1.9 Total Bilirubin 1.1 H AST 25 ALT 26 Alkaline Phosphatase 92 Total Protein 7.1 Albumin 3.8 Active Medications Generic Name Dose Route Start Last Admin Trade Name Freq PRN Reason Stop Dose Admin Baclofen 10 mg 03/12/18 10:00 03/13/18 10:43 Lioresal - PO 10 mg BID RAMA Administration Dexamethasone Sodium Phosphate 4 mg 03/11/18 11:24 Decadron Injection - IVPUSH ONCE PRN NAUSEA AND/OR VOMITING Diphenhydramine HCl 25 mg 03/11/18 07:29 Benadryl - PO Q6H PRN FOR ITCHING Diphenhydramine HCl 12.5 mg 03/11/18 11:24 Benadryl Injection - IVPUSH ONCE PRN FOR ITCHING Docusate Sodium 100 mg 03/11/18 14:00 03/13/18 15:14 Colace - PO 100 mg TID RAMA Administration Folic Acid 1 mg 03/11/18 10:00 03/13/18 10:43 Folic Acid - PO 1 mg DAILY RAMA Administration Magnesium Hydroxide 30 ml 03/11/18 23:49 03/12/18 00:08 Milk Of Magnesia - PO 30 ml DAILY PRN Administration CONSTIPATION Ondansetron HCl 4 mg 03/11/18 07:29 Zofran Injection IVPUSH Q6H PRN NAUSEA Ondansetron HCl 4 mg 03/11/18 11:24 Zofran Injection IVPUSH Q4H PRN NAUSEA AND/OR VOMITING Oxycodone HCl 5 mg 03/13/18 11:24 Roxicodone - PO Q4H PRN PAIN LEVEL 1-5 Oxycodone HCl 10 mg 03/13/18 11:24 Roxicodone - PO Q4H PRN PAIN LEVEL 6-10 Pantoprazole Sodium 40 mg 03/12/18 10:00 03/13/18 10:43 Protonix - PO 40 mg DAILY RAMA Administration Promethazine HCl 12.5 mg 03/11/18 11:24 Phenergan Injection - IVPB Q6H PRN NAUSEA AND/OR VOMITING Ranitidine HCl 150 mg 03/12/18 10:15 03/13/18 10:43 Zantac - PO 150 mg DAILY RAMA Administration Varenicline 1 mg 03/12/18 10:00 03/13/18 10:42 Chantix - PO 1 mg BID RAMA Administration ASSESSMENT/PLAN: Problem List - Problems (1) S/P lumbar spinal fusion Assessment/Plan: * SKIMMER pain pump changed to PO oxycodone. * PPI * Zofran for nausea * encourage incentive spirometer. * Activity and diet per surgical team. (2) GERD (gastroesophageal reflux disease) Assessment/Plan: * ranitidine 150mg PO daily. (3) DVT prophylaxis Assessment/Plan: Bilateral SCD's Visit type - Emergency Visit Emergency Visit: Yes ED Registration Date: 03/11/18 Care time: The patient presented to the Emergency Department on the above date and was hospitalized for further evaluation of their emergent condition. - New Patient This patient is new to me today: No - Critical Care Critical Care patient: Yes Total Critical Care Time (in minutes): 31 Critical Care Statement: The care of this patient involved high complexity decision making to prevent further life threatening deterioration of the patient 's condition and/or to evaluate & treat vital organ system(s) failure or risk of failure.
--- NOTE | 2018-03-13 18:10 | PN ---
Teaching Attending Note Name of Resident: Rahul Nicholas ATTENDING PHYSICIAN STATEMENT I saw and evaluated the patient. I reviewed the resident's note and discussed the case with the resident. I agree with the resident's findings and plan as documented. SUBJECTIVE:No complaints OBJECTIVE: Vital Signs Period Temp Pulse Resp BP Sys/Osman Pulse Ox Last 24 Hr 98.6 F-99.6 F 67-88 17-18 117-141/61-96 99-99 HEENT: Mm moist, no anemia, PERRLA EOMI NECK: No JVd No Bruit CHEST: CTA B/L CVS: s1S2 R ABD: No distention non tender EXT: S/P Laminectomy SUPERVISOR WATER SOFTENER SERVICE: Non focal ASSESSMENT AND PLAN:52 yrs old man s/p Laminectomy , cleared by spine surgery astymptomatic walking Plan; can be Dc Home F/U with Neurosugery.
[2018-03-13] MEDS: oxyCODONE HCL 5 MG TABLET PO PRN ×2 (18:14→22:15)
[2018-03-13] MEDS ORDERED: DEXAMETHASONE SOD PHOSPHATE 4 MG/1 ML VIAL IVPUSH PRN (18:20)
[2018-03-13] MEDS ORDERED: MAGNESIUM HYDROX 2400MG/30ML ORAL SUSPENSION 30 ML CUP PO PRN (18:20)
[2018-03-13] MEDS ORDERED: ONDANSETRON 4 MG/2 ML VIAL IVPUSH PRN ×2 (18:20)
[2018-03-13] MEDS ORDERED: PROMETHAZINE HCL 25 MG/1 ML VIAL IVPB PRN (18:20)
[2018-03-13] MEDS ORDERED: diphenhydrAMINE HCL 25 MG CAPSULE (FP) PO PRN (18:20)
[2018-03-14] MEDS: oxyCODONE HCL 5 MG TABLET PO PRN ×3 (02:21→13:33)
[2018-03-14] MEDS: DOCUSATE SODIUM 100 MG CAPSULE (FP) PO SCH ×2 (07:13→14:13)
[2018-03-14 08:09] LABS: BASO % 0.3 % (0-2.0); EOS % 1.1 % (0-4.5); HEMOGLOBIN 11.8 GM/dL (11.7-16.9); LYMPH % 18.6 % (8-40); MCH 34.6 pg (25.7-33.7); MCHC 35.9 g/dl (32.0-35.9); MEAN CELL VOLUME 96.4 fl (80-96); MEAN PLT VOLUME 9.5 fl (7.5-11.1); MONO % 11.4 % (3.8-10.2); NEUT % 68.6 % (42.8-82.8); PLATELET COUNT 230 K/MM3 (134-434); RBC 3.42 M/mm3 (4.00-5.60); RDW 13.5 % (11.9-15.9); WHITE BLOOD COUNT 12.1 K/mm3 (4.0-10.0)
[2018-03-14 08:30] LABS: ALBUMIN 3.3 g/dl (3.4-5.0); ALK PHOS 79 U/L (45-117); ANION GAP 12 MMOL/L (8-16); BILIRUBIN,TOTAL 0.8 mg/dL (0.2-1); BLOOD UREA NITROGEN 15 mg/dL (7-18); CALCIUM 8.1 mg/dL (8.5-10.1); CHLORIDE 98 mmol/L (98-107); CO2 24 mmol/L (21-32); CREATININE 0.7 mg/dL (0.55-1.3); GLUCOSE,RANDOM 89 mg/dL (74-106); PHOSPHOROUS 3.3 mg/dL (2.5-4.9); SGOT/AST 18 U/L (15-37); SGPT/ALT 24 U/L (13-61); SODIUM 134 mmol/L (136-145); TOT PROT 6.4 g/dl (6.4-8.2)
--- NOTE | 2018-03-14 09:48 | PN ---
Progress Note (short form) - Note Progress Note: Surgery: POD #3 exploration of hardware with re-op and multilevel decompression and fusion L3-S1. Patient seen and examined at bedside with no Complaints. Patient ambulating without assistance, tolerating his diet and voiding. Denies any CP, SOB, N/V/D, Fever of Chills. Vital Signs Temp 98.4 F 12/18 05:47 Pulse 70 03/14/18 05:47 Resp 20 03/14/18 05:47 BP 102/64 03/14/18 05:47 Pulse Ox 99 03/13/18 21:00 Intake & Output 18 12/18 1218 11:59 23:59 11:59 Intake Total 380 Output Total 600 5 Balance 380 -600 -5 Weight 182 lb 160 lb 4 oz Intake: IV 140 Lactated Ringers Solution 140 1,000 ml @ 125 mls/hr IV ASDIR RAMA Rx#: [id number] Oral 240 Output: Drainage 100 5 Lower Back 100 5 Urine 500 Void 500 Other: Voiding Method Urinal Urinal # Unmeasured Voids [place] 0 Bowel Movement No Height 5 ft 10 in Body Mass Index (BMI) 26.1 Weight Measurement Method Built in [facility] CBC, BMP 12/06/18 06:00 12/18 06:00 PE: A&Ox3, NAD unlabored resp on RA Lumbar spine: Incision c/d/i with [place] in situ, surrounding tissue with no erythema, edema or evidence of collection or d/c. DENA drain removed with tip fully intact.No evidence of active bleeding at drain site. B/L LE compartments soft, supple and non-tender to palpation. 5/5 strength with dorsi/plantar flexion b/l with +2 pedal pulses. Problem List - Problems (1) S/P lumbar spinal fusion Assessment/Plan: POD #3 multilevel lumbar revision/fusion doing well. -Pain control: NO NSAID's. -DVT PPx: -Mechanical only: SUNITA's, SCD's. -Chemical: None. -Incentive spirometry. -PT/OT/Rehab, OOB. -WBAT B/L LE. -No bending, lifting, or twisting for 9-12 months. - D/c planning for home with tomorrow morning Code(s): Z98.1 - ARTHRODESIS STATUS
[2018-03-14] MEDS: BACLOFEN 10 MG TABLET (FP) PO SCH (09:58)
[2018-03-14] MEDS ORDERED: PANTOPRAZOLE 40 MG TABLET (FP) PO SCH (10:00)
[2018-03-14] MEDS ORDERED: FOLIC ACID 1 MG TABLET (FP) PO SCH (10:00)
[2018-03-14] MEDS ORDERED: RANITIDINE HCL 150 MG TABLET (FP) PO SCH (10:00)
[2018-03-14] MEDS: VARENICLINE TARTRATE 1 MG TAB PO SCH (10:01)
--- NOTE | 2018-03-14 10:01 | PN ---
Teaching Attending Note Name of Resident: Rahul Nicholas ATTENDING PHYSICIAN STATEMENT I saw and evaluated the patient. I reviewed the resident's note and discussed the case with the resident. I agree with the resident's findings and plan as documented. SUBJECTIVE: OBJECTIVE: Period Temp Pulse Resp BP Sys/Osman Pulse Ox Last 24 Hr 98.4 F-99.4 F 70-88 18-20 102-141/64-92 99-99 HEENT: Mm moist, no anemia, PERRLA EOMI NECK: No JVd No Bruit CHEST: CTA B/L CVS: s1S2 R ABD: No distention non tender EXT: S/P Laminectomy ENLISTED ADVISOR: Non focal LABS: CBC, BMP 03/14/18 06:00 03/14/18 06:00 Active Medications Baclofen (Lioresal -) 10 mg PO BID [facility] Last Admin: 03/13/18 22:15 Dose: 10 mg Dexamethasone Sodium Phosphate (Decadron Injection -) 4 mg IVPUSH ONCE PRN PRN Reason: NAUSEA AND/OR VOMITING Diphenhydramine HCl (Benadryl Injection -) 12.5 mg IVPUSH ONCE PRN PRN Reason: FOR ITCHING Diphenhydramine HCl (Benadryl -) 25 mg PO Q6H PRN PRN Reason: FOR ITCHING Docusate Sodium (Colace -) 100 mg PO TID [facility] Last Admin: 03/14/18 07:13 Dose: 100 mg Folic Acid (Folic Acid -) 1 mg PO DAILY [facility] Magnesium Hydroxide (Milk Of Magnesia -) 30 ml PO DAILY PRN PRN Reason: CONSTIPATION Ondansetron HCl (Zofran Injection) 4 mg IVPUSH Q6H PRN PRN Reason: NAUSEA Ondansetron HCl (Zofran Injection) 4 mg IVPUSH Q4H PRN PRN Reason: NAUSEA AND/OR VOMITING Oxycodone HCl (Roxicodone -) 5 mg PO Q4H PRN PRN Reason: PAIN LEVEL 1-5 Oxycodone HCl (Roxicodone -) 10 mg PO Q4H PRN PRN Reason: PAIN LEVEL 6-10 Last Admin: 03/14/18 08:22 Dose: 10 mg Pantoprazole Sodium (Protonix -) 40 mg PO DAILY [facility] Promethazine HCl (Phenergan Injection -) 12.5 mg IVPB Q6H PRN PRN Reason: NAUSEA AND/OR VOMITING Ranitidine HCl (Zantac -) 150 mg PO DAILY [facility] Varenicline (Chantix -) 1 mg PO BID [facility] Last Admin: 03/13/18 23:01 Dose: 1 mg ASSESSMENT AND PLAN:52 yrs old man s/p Laminectomy , cleared by spine surgery asymptomatic walking Plan; can be Dc Home F/U with Neurosurgery.
[2018-03-14 15:03] VITALS: BP 133/80; PULSE 84; TEMP 99
--- NOTE | 2018-03-14 15:33 | DS ---
Physical Exam: SUBJECTIVE: Patient seen and examined at bedside. No overnight events. No new complaints. Pain is well controlled. Tolerating diet. Ambulating well. Denies CP ,CORTEZ, SOB, abdominal pain, nausea or vomiting. OBJECTIVE: Vital Signs Period Temp Pulse Resp BP Sys/Osman Pulse Ox Last 24 Hr 98.4 F-99.4 F 70-88 16-20 102-138/64-90 99-99 PHYSICAL EXAM GENERAL: AAOx3, NAD HEAD: NCAT EYES: PERRL, EOMI, sclera anicteric, conjunctiva clear. ENT: moist mucous membranes. NECK: supple, No jvd LUNGS: CTAB, no wheezes, no crackles, no accessory muscle use. HEART: RRR, S1, S2 without murmur, rub or gallop. ABDOMEN: Soft, NTND,NABS, no guarding, no rebound, no hepatosplenomegaly, no masses. EXTREMITIES: 2+ pulses, warm, well-perfused, no edema. NEUROLOGICAL: Cranial nerves II through XII grossly intact. Normal speech, gait not observed.LE neurovascularly intact. Lumbar spine: Incision c/d/i with Dre in situ, surrounding tissue with no erythema, edema or evidence of collection or d/c. DENA drain removed with tip fully intact.No evidence of active bleeding at drain site. B/L LE compartments soft, supple and non-tender to palpation. 5/5 strength with dorsi/plantar flexion b/l with +2 pedal pulses. LABS Laboratory Results - last 24 hr 03/14/18 03/14/18 06:00 06:00 WBC 12.1 H RBC 3.42 L Hgb 11.8 Hct 33.0 L MCV 96.4 H MCH 34.6 H MCHC 35.9 RDW 13.5 Plt Count 230 MPV 9.5 Absolute Neuts (auto) 8.3 H Neutrophils % 68.6 Lymphocytes % 18.6 D Monocytes % 11.4 H Eosinophils % 1.1 D Basophils % 0.3 Nucleated RBC % 0 Sodium 134 L Potassium 4.0 Chloride 98 Carbon Dioxide 24 Anion Gap 12 BUN 15 Creatinine 0.7 Creat Clearance w eGFR > 60 Random Glucose 89 Calcium 8.1 L Phosphorus 3.3 Magnesium 2.0 Total Bilirubin 0.8 AST 18 ALT 24 Alkaline Phosphatase 79 Total Protein 6.4 Albumin 3.3 L HOSPITAL COURSE: 52M w/ pmhx of acid reflux admitted for elective lumbar surgery s/p L3-S1 post- lumbar interbody fusion. Patient was initially seen in ICU post operatively. 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 Pain was well controlled. Patients passed flatus and diet was advanced. Tolerated advanced diet. He walked well with occupational therapy. He will be given rolling walker upon discharge. He will follow up with Ortho in one week. Instructed to return to ED if he experiences increased pain, fever or chills. Patient is stable for discharge home. 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 Souza's Post Operative Instructions Physical Activity Resume your normal everyday activity as tolerated. No heavy lifting or exercise until seen by your surgeon. You may walk unlimited amounts and climb stairs. Do not operate a vehicle while taking narcotic medication. Wound Care Keep your incision clean, dry and covered at all times. Do not submerge incision or apply ointments or creams. Sponge bath only. Diet There are no dietary restrictions. Eat healthy, high-fiber foods. Drink 6-8 glasses of liquid each day. This will assist in keeping your bowels regular. Pain Management You may take Tylenol or acetaminophen. Any pain prescription medication ordered should be taken as prescribed for moderate to severe pain. Any chest pain or shortness of breath, seek Emergency Care RAS[facility]. Call Dr. Souza for any of the following: Severe pain not relieved by medication Fever of 101 or higher Excessive bleeding or drainage on dressing Inability to urinate If you experience chest pain or shortness of breath, please seek emergency care immediately. Please call the office at to confirm your post-op appointment for the week following surgery. Call the office to schedule a post-operative appointment for 2-3 weeks post-op Referrals: Huang Souza MD [Staff Physician] - 1 Week Disposition: HOME - Home Medications Comprehensive Discharge Medication List: Ambulatory Orders Baclofen 10 mg PO BID 03/08/18 Omeprazole 40 mg PO DAILY 03/08/18 Varenicline Tartrate [Chantix] 1 mg PO BID 03/08/18 Zolpidem Tartrate [Ambien] 10 mg PO HS 03/08/18 Baclofen 10 mg PO BID #20 tablet MDD 2 03/14/18 Docusate Sodium [Colace -] 100 mg PO TID capsule 03/14/18 Folic Acid - 1 mg PO DAILY tablet 03/14/18 Magnesium Hydrox 2400MG/30Ml [Milk of Magnesia -] 30 ml PO DAILY PRN cup Oxycodone HCl/Acetaminophen [Percocet 5-325 mg Tablet] 1 - 2 tab PO Q4H PRN #20 tablet MDD 6 03/14/18 Problem List - Problems (1) S/P lumbar spinal fusion (2) GERD (gastroesophageal reflux disease) (3) DVT prophylaxis This patient is new to me today: No Emergency Visit: Yes ED Registration Date: 03/11/18 Care time: The patient presented to the Emergency Department on the above date and was hospitalized for further evaluation of their emergent condition. Critical Care patient: No - Discharge Referral Referred to [facility] No
[2018-03-14] MEDS ORDERED: MORPHINE SULFATE 2 MG/ML VIAL IVPUSH ONE (15:41)
== END 2018-03-14 18:19 | disposition home or self-care (01) | DRG 304 ==
LOC: JSAMEDAYSX 03-11 06:02 → JICU 03-11 12:47 → J8W 03-13 16:53
PROVIDERS: ADMIT Orthopaedic Surgery Orthopaedic Surgery of the Spine; ATTEND Internal Medicine
PROC: 0SG1071 Fusion of 2 or more Lumbar Vertebral Joints with Autologous Tissue Substitute, Posterior Approach, Posterior Column, Open Approach (ICD-10-PCS; 2018-03-11)
PROC: 07DS3ZZ Extraction of Vertebral Bone Marrow, Percutaneous Approach (ICD-10-PCS; 2018-03-11)
PROC: 01NB0ZZ Release Lumbar Nerve, Open Approach (ICD-10-PCS; 2018-03-11)
PROC: 0JQ70ZZ Repair Back Subcutaneous Tissue and Fascia, Open Approach (ICD-10-PCS; 2018-03-11)
PROC: 0SG30AJ Fusion of Lumbosacral Joint with Interbody Fusion Device, Posterior Approach, Anterior Column, Open Approach (ICD-10-PCS; principal; 2018-03-11 08:00)
DX: M48.062 Spinal stenosis, lumbar region with neurogenic claudication (principal); M54.16 Radiculopathy, lumbar region; M40.299 Other kyphosis, site unspecified; M51.86 Other intervertebral disc disorders, lumbar region; R53.1 Weakness; K21.9 Gastro-esophageal reflux disease without esophagitis
CPT/HCPCS: 36415; 76000-TC-FY; 80048; 80053; 83735; 84100; 85025; 85027; 86850; 86900; 86901; 88304-TC; 93005; 93010; 97116-GP; 97161-GP; J0475; J1644